=== PATIENT | female | born 1970 | race Native Hawaiian/Other Pacific Islander ===

== ENCOUNTER 2018-12-31 16:03 | Emergency (ER) | payer BC, MEDICAID ==
[2018-12-31 16:12] VITALS: RESP 18; BMI 20.9
--- NOTE | 2018-12-31 16:45 | ED PDOC ---
Arrival/HPI - General Chief Complaint: Flu-like Symptoms Time Seen by Provider: 12/31/18 16:17 Historian: Patient - History of Present Illness Narrative History of Present Illness (Text): 12/31/18 16:45 48 year old female, with past medical history of appendicitis, gastritis, hypertension, and an ovarian cyst presents to emergency department for complaints of throat pain since yesterday with associated diarrhea. Patient states that she took leftover antibiotics for her throat yesterday, and experienced two episodes of diarrhea earlier today. Patient reports shaking, chills, and "feeling hot" for which she took Tylenol an hour ago. She also notes abdominal pain which has been present for a long time. Patient denies any chest pain, vomiting, nausea, headache, dizziness, urinary symptoms, or any other complaints. Time/Duration: Other (yesterday ) Symptom Onset: Gradual Symptom Course: Unchanged Activities at Onset: Light Context: Home Past Medical History - Provider Review Nursing Documentation Reviewed: Yes - Cardiac Hx Hypertension: Yes - Pulmonary Hx Respiratory Disorders: No - Gastrointestinal Hx Diarrhea: Yes Hx Gastritis: Yes - Psychiatric Hx Substance Use: No Family/Social History - Physician Review Nursing Documentation Reviewed: Yes Family/Social History: No Known Family HX Smoking Status: Never Smoked Hx Alcohol Use: No Hx Substance Use: No Allergies/Home Meds Allergies/Adverse Reactions: Allergies No Known Allergies Allergy (Verified 12/31/18 16:07) Home Medications: Home Meds Medication Instructions Recorded Confirmed Esomeprazole Magnesium [Nexium 20 mg PO PRN PRN 12/31/18 12/31/18 24Hr] Losartan [Cozaar] 12.5 mg PO DAILY 12/31/18 12/31/18 Review of Systems - Physician Review All systems were reviewed & negative as marked: Yes - Review of Systems Respiratory: absent: SOB Cardiovascular: absent: Chest Pain Physical Exam - Physical Exam Narrative Physical Exam (Text): 12/31/18 16:41 Constitutional: No acute distress. Head: Normocephalic. Atraumatic. Eyes: PERRL. ENT: Moist mucous membranes. Neck: Supple. Cardiovascular: Regular rate. Chest: No tenderness. Respiratory: Pharyngeal erythema, no exudates or swelling GI: Soft. Nontender. Nondistended. Back: No CVA tenderness. Musculoskeletal: No tenderness or swelling of extremities. Skin: No rash. Neurologic: Alert, no focal deficit. Vital Signs Reviewed: Yes Vital Signs Temp Pulse Resp BP Pulse Ox 12/31/18 16:07 98.2 F 91 H 18 149/80 100 Temperature: Afebrile Blood Pressure: Normal Pulse: Regular Respiratory Rate: Normal Appearance: Positive for: Well-Appearing, Non-Toxic, Comfortable Pain Distress: None Mental Status: Positive for: Alert and Oriented X 3 Medical Decision Making ED Course and Treatment: 12/31/18 16:53 Impression: 48 year old female presents to emergency department for throat pain since yesterday and two episodes of diarrhea. Plan: -- Labs -- Rapid strep -- Urinalysis - Scribe Statement The provider has reviewed the documentation as recorded by the Scribe Nacho Freitas All medical record entries made by the Scribe were at my direction and personally dictated by me. I have reviewed the chart and agree that the record accurately reflects my personal performance of the history, physical exam, medical decision making, and the department course for this patient. I have also personally directed, reviewed, and agree with the discharge instructions and disposition. Disposition/Present on Arrival - Present on Arrival Any Indicators Present on Arrival: No History of DVT/PE: No History of Uncontrolled Diabetes: No Urinary Catheter: No History of Decub. Ulcer: No History Surgical Site Infection Following: None - Disposition Have Diagnosis and Disposition been Completed?: Yes Diagnosis: Sore throat Disposition: HOME/ ROUTINE Disposition Time: 17:53 Patient Plan: Discharge Condition: FAIR Discharge Instructions (ExitCare): Sore Throat in Adults Prescriptions: Amoxicillin/Clavulanate [Augmentin 875 MG-125 MG] 1 tab PO BID #20 tab Referrals: Everette Salcido MD [Staff Provider] - [place] up [place] [facility] [place] [facility] [place] - Follow up with primary Forms: [employer] (Swazi)
[2018-12-31 17:18] LABS: BASO # 0.01 K/mm3 (0.0-2.0); BASO % 0.1 % (0.0-3.0); EOS % 0.3 % (1.5-5.0); HEMOGLOBIN 13.4 g/dL (12.0-16.0); LYMPH # 0.3 (1.2-3.4); LYMPH % 1.7 % (22.0-35.0); MEAN CELL VOLUME 92.5 fl (80.0-105.0); MEAN CORPUSCULAR HEMOGLOBIN 30.4 pg (25.0-35.0); MEAN CORPUSCULAR HGB CONC 32.8 g/dl (31.0-37.0); MEAN PLATELET VOLUME 9.6 fl (7.0-11.0); MONO # 0.4 (0.1-0.6); MONO % 2.4 % (1.0-6.0); PLATELET COUNT 254 10^3/uL (120.0-450.0); RBC 4.41 10^6/uL (3.5-6.1); RED CELL DISTRIBUTION WIDTH 13.4 % (11.5-14.5); WHITE BLOOD COUNT 14.9 10^3/uL (4.5-11.0)
[2018-12-31 17:29] LABS: ALB/GLOB RATIO 1.2 (1.1-1.8); ALBUMIN 3.9 g/dL (3.0-4.8); ALT/SGPT 17 U/L (7-56); AST/SGOT 21 U/L (14-36); BLOOD UREA NITROGEN 13 mg/dL (7-21); CALCIUM 8.6 mg/dL (8.4-10.5); GFR NON-AFRICAN AMERICAN > 60; LIPASE 67 U/L (23-300)
[2018-12-31 17:37] LABS: PH,URINE 6.5 (4.7-8.0); URINE BILIRUBIN NEGATIVE (NEGATIVE); URINE BLOOD LARGE (NEGATIVE); URINE GLUCOSE (UA) NEGATIVE (NEGATIVE); URINE LEUKOCYTE ESTERASE TRACE Leu/uL (NEGATIVE); URINE PROTEIN >=300 mg/dL (<30 mg/dL); URINE UROBILINOGEN 0.2 E.U./dL (<1 E.U./dL)
[2018-12-31 17:39] LABS: HCG,QUALITATIVE URINE NEGATIVE (NEGATIVE)
[2018-12-31 17:40] LABS: URINE APPEARANCE SL CLOUDY (CLEAR); URINE COLOR YELLOW (YELLOW)
[2018-12-31 17:47] LABS: URINE RBC TNTC /hpf (0-2)
[2018-12-31 17:48] LABS: URINE BACTERIA OCC /hpf
[2018-12-31 18:03] LABS: PLATELET ESTIMATE NORMAL (NORMAL)
[2018-12-31 18:04] LABS: BAND 6 % (0-2); LYMPHOCYTE 1 % (22.0-35.0); MONOCYTE 1 % (1.0-6.0); NEUTROPHIL 92 % (50.0-70.0)
[2018-12-31 18:21] VITALS: BP 126/85; PULSE 78; TEMP 98.4; O2SAT 99
== END 2018-12-31 18:21 | disposition home or self-care (01) ==
LOC: ED 16:03
DX: J02.9 Acute pharyngitis, unspecified (principal); I10 Essential (primary) hypertension